=== PATIENT | male | born 1965 | race Caucasian/White ===

== ENCOUNTER 2017-03-21 13:00 | Emergency (ER) | payer OTHER ==
[2017-03-21] MEDS: LORAZEPAM 1 MG TAB PO (15:22)
[2017-03-21] MEDS: ONDANSETRON (ODT) 4 MG TAB ODT (15:22)
== END 2017-03-21 16:04 | disposition home or self-care (01) ==
LOC: E/R 13:00
DX: F10.230 Alcohol dependence with withdrawal, uncomplicated (principal)
CPT/HCPCS: 99284; Z7502